=== PATIENT | female | born 1965 | race African-American/Black ===

== ENCOUNTER 2023-05-18 18:12 | Emergency (ER) | payer BC, OTHER ==
[~2023-05-18] VITALS: Ht 154.9 cm; Wt 72.7 kg
[2023-05-18 18:15] VITALS: PULSE 0; O2SAT 0
== END 2023-05-18 18:27 ==
LOC: ER 18:12 → EDBD 18:12 → ER 18:27
DX: I46.9 Cardiac arrest, cause unspecified (principal)
CPT/HCPCS: 92950